=== PATIENT | female | born 1970 | race Hispanic/Latino ===

== ENCOUNTER 2020-06-01 15:21 | Emergency (ER) | payer OTHER ==
[~2020-06-01] VITALS: Ht 154.9 cm; Wt 77.1 kg
[2020-06-01] MEDS ORDERED: ONDANSETRON HCL INJ 2MG/ML 2ML 2 MG/ML VIAL IV STA (16:07)
[2020-06-01] MEDS ORDERED: FAMOTIDINE 20 MG/2 ML VIAL IV STA (16:07)
[2020-06-01] MEDS ORDERED: SODIUM CHLORIDE 0.9% 1000ML 1,000 ML IV SCH (16:15)
[2020-06-01] MEDS ORDERED: DICYCLOMINE HCL 20 MG/2 ML VIAL IM ONE (16:15)
[2020-06-01] MEDS ORDERED: FAMOTIDINE20 MG PO ×2 (16:24→16:27)
[2020-06-01] MEDS ORDERED: PANTOPRAZOLE SO40 MG PO (16:28)
[2020-06-01] MEDS ORDERED: ONDANSETRON ODT8 MG PO (16:29)
[2020-06-01] MEDS ORDERED: DICYCLOMINE HCL20 MG PO (16:30)
[2020-06-01] MEDS ORDERED: FAMOTIDINE 20 MG/2 ML VIAL IV ONE (16:48)
== END 2020-06-01 17:02 | disposition home or self-care (01) ==
LOC: FSED 16:00
DX: R10.13 Epigastric pain (principal); R11.0 Nausea; E03.9 Hypothyroidism, unspecified; R03.0 Elevated blood-pressure reading, without diagnosis of hypertension
CPT/HCPCS: 80048; 81003; 85025; 99283